=== PATIENT | male | born 1960 | race Caucasian/White ===

== ENCOUNTER → 2020-01-29 | Outpatient (CLI) | payer BC ==
[2020-01-29 11:20] LABS: HCT 44.2 % (39.0-53.0); MCV 91.2 fL (80.0-100.0); Mean Platelet Volume 7.9; Platelet Count 241 k/uL (150-450); RBC 4.84 m/uL (4.30-5.90); RDW 12.6 % (11.5-15.5); WBC 5.3 k/uL (3.8-10.6)
[2020-01-29 18:03] LABS: African American GFR (CKD) 94.4 (60.0-200.0); Albumin 4.2 g/dL (3.80-4.90); Albumin/Globulin Ratio 1.83 (1.60-3.17); Anion Gap 7.8 mmol/L (4.00-12.00); Calcium 9.2 mg/dL (8.7-10.3); Carbon Dioxide 26.2 mmol/L (21.6-31.8); Chol/HDL Ratio 5.09; Globulin 2.3 g/dL (1.6-3.3); LDL Cholesterol,Calculated 148.6 mg/dL (0.0-131.0); Non-African American GFR(CKD) 81.4 (60.0-200.0); Potassium 4.4 mmol/L (3.5-5.5); Total Bilirubin 0.8 mg/dL (0.3-1.2); Total Protein 6.5 g/dL (6.2-8.2); VLDL Calculation 27.4 mg/dL (5.00-40.00)
== END | disposition home or self-care (01) ==
LOC: LABWHC1 10:01
PROVIDERS: ATTEND Nurse Practitioner Family
DX: Z13.220 Encounter for screening for lipoid disorders (principal); Z12.11 Encounter for screening for malignant neoplasm of colon; Z12.5 Encounter for screening for malignant neoplasm of prostate; Z11.59 Encounter for screening for other viral diseases
CPT/HCPCS: 86803; 80061; 80053; 85027; 36415; G0103

== ENCOUNTER 2024-11-25 06:31 | Emergency (ER) | payer BC ==
[2024-11-25 06:36] VITALS: RESP 18
[2024-11-25 07:30] LABS: Basophils # (A) 0.06 10*3/uL (0.00-0.10); Basophils % (A) 0.8 %; Eosinophils # (A) 0.21 10*3/uL (0.04-0.35); Eosinophils % (A) 2.9 %; HCT 41.6 % (39.6-50.0); HGB 14.5 g/dL (13.0-17.0); Lymphocytes # (A) 1.22 10*3/uL (0.90-5.00); Lymphocytes % (A) 16.7 %; MCH 30.5 pg (27.0-32.0); MCHC 34.9 g/dL (32.0-37.0); MCV 87.4 fL (80.0-97.0); Mean Platelet Volume 10.7 fL (9.5-12.2); Neutrophils % (A) 68.5 %; Platelet Count 242 10*3/uL (140-440); RBC 4.76 10*6/uL (4.40-5.60); RDW 12.9 % (11.5-14.5)
--- NOTE | 2024-11-25 07:31 | ED ---
General Adult HPI - General Chief complaint: Dental/Oral Stated complaint: L Side Face Swelling Time Seen by Provider: 11/25/24 06:39 Source: patient, RN notes reviewed Mode of arrival: ambulatory Limitations: no limitations - History of Present Illness Initial comments: 64 year old male that presents to the ED with swelling and pain in the L cheek for the past 2 days. He reports that he has had no trauma or recent dental procedures on that side. He has tried taking Ibuprofen with no relief. Pain is getting worse to the point that now he has pain with swallowing and chewing.The pain is so severe that his teeth hurt on the left side too. He denies any nausea, vomiting, chest pain, and fevers. - Related Data Previous Rx's Medication Instructions Recorded Amoxic-Pot Clav 875-125Mg 1 tab PO Q12HR #20 tab 11/25/24 [Augmentin 875-125] Allergies Allergy/AdvReac Type Severity Reaction Status Date / Time No Known Allergies Allergy Verified 11/25/24 06:36 Review of Systems ROS Statement: Those systems with pertinent positive or pertinent negative responses have been documented in the HPI. ROS Other: All systems not noted in ROS Statement are negative. Past Medical History Past Medical History: No Reported History History of Any Multi-Drug Resistant Organisms: None Reported Past Surgical History: No Surgical Hx Reported Past Psychological History: No Psychological Hx Reported Smoking Status: Never smoker Past Alcohol Use History: Rare Past Drug Use History: None Reported General Exam Limitations: no limitations General appearance: alert, in no apparent distress Head exam: Present: atraumatic, normocephalic, normal inspection Eye exam: Present: normal appearance, PERRL, EOMI. Absent: scleral icterus, conjunctival injection, periorbital swelling ENT exam: Present: normal exam, mucous membranes dry, mucous membranes moist. Absent: normal oropharynx (tenderness on left side ), TM's normal bilaterally Neck exam: Present: normal inspection, full ROM. Absent: tenderness, lymphadenopathy Respiratory exam: Present: normal lung sounds bilaterally. Absent: respiratory distress, wheezes, rales, rhonchi, stridor Cardiovascular Exam: Present: regular rate, normal rhythm, normal heart sounds. Absent: systolic murmur, diastolic murmur, rubs, gallop, clicks Course Vital Signs 11/25/24 06:33 Temperature 98.1 F Pulse Rate 58 L Respiratory 18 Rate Blood Pressure 159/87 O2 Sat by Pulse 98 Oximetry Medical Decision Making - Medical Decision Making Was pt. sent in by a medical professional or institution ([facility] Nagy, [facility], urgent care, hospital, or alf...) When possible be specific @ -No Did you speak to anyone other than the patient for history (EMS, parent, family, police, friend...)? What history was obtained from this source @ -No Did you review nursing and triage notes (agree or disagree)? Why? @ -I reviewed and agree with nursing and triage notes Were old charts reviewed (outside hosp., previous admission, EMS record, old EKG, old radiological studies, urgent care reports/EKG's, alf records)? Report findings @ -No old charts were reviewed Differential Diagnosis (chest pain, altered mental status, abdominal pain women, abdominal pain men, vaginal bleeding, weakness, fever, dyspnea, syncope, headache, dizziness, GI bleed, back pain, seizure, CVA, palpatations, mental health, musculoskeletal)? @ -sailadentitis, parotitis, peritonsillar abscess, strep pharyngitis, dental infection, this is not all inclusive. EKG interpreted by me (3pts min.). @ -[None X-rays interpreted by me (1pt min.). @ -None done CT interpreted by me (1pt min.). @ -None done U/S interpreted by me (1pt. min.). @ -None done What testing was considered but not performed or refused? (CT, X-rays, U/S, labs)? Why? @ -None What meds were considered but not given or refused? Why? @ -None Did you discuss the management of the patient with other professionals (professionals i.e. [facility] Nagy, [facility], lab, RT, psych nurse, rn social services, air intelligence officer, teacher, senior grants officer, leather case finisher)? Give summary @ -No Was smoking cessation discussed for >3mins.? @ -No Was critical care preformed (if so, how long)? @ -No Were there social determinants of health that impacted care today? How? (Homelessness, low income, unemployed, alcoholism, drug addiction, transportati on, low edu. Level, literacy, decrease access to med. care, custodial, rehab)? @ -No Was there de-escalation of care discussed even if they declined (Discuss DNR or withdrawal of care, Hospice)? DNR status @ -No What co-morbidities impacted this encounter? (DM, HTN, Smoking, COPD, CAD, Cancer, CVA, ARF, Chemo, Hep., AIDS, mental health diagnosis, sleep apnea, morbid obesity)? @ -None Was patient admitted / discharged? Hospital course, mention meds given and route, prescriptions, significant lab abnormalities, going to OR and other pertinent info. @ -Discharge patient presented for left-sided facial swelling. Patient does have swelling over the parotid gland region amylase is elevated consistent with parotitis. Patient was started on Augmentin and advised to use sour candies. Patient will follow-up with PCP and return for any worsening change in symptoms. Undiagnosed new problem with uncertain prognosis? @ -No Drug Therapy requiring intensive monitoring for toxicity (Heparin, Nitro, Insul in, Cardizem)? @ -No Were any procedures done? @ -No Diagnosis/symptom? @ -Parotitis Acute, or Chronic, or Acute on Chronic? @Acute Uncomplicated (without systemic symptoms) or Complicated (systemic symptoms)? @ -Uncomplicated Side effects of treatment? @ -No Exacerbation, Progression, or Severe Exacerbation? @ -No Poses a threat to life or bodily function? How? (Chest pain, [place], [place], pneumonia, PE, COPD, DKA, ARF, appy, cholecystitis, CVA, Diverticulitis, Homicidal, Suicidal, threat to staff... and all critical care pts) @ -No - Lab Data Result diagrams: 11/25/24 07:16 11/25/24 07:16 Lab Results 11/25/24 11/25/24 Range/Units 07:16 07:16 WBC 7.30 (4.50-10.00) 10*3/uL RBC 4.76 (4.40-5.60) 10*6/uL Hgb 14.5 (13.0-17.0) g/dL Hct 41.6 (39.6-50.0) % MCV 87.4 (80.0-97.0) fL MCH 30.5 (27.0-32.0) pg MCHC 34.9 (32.0-37.0) g/dL Plt Count 242 (140-440) 10*3/uL MPV 10.7 (9.5-12.2) fL Immature Gran % (Auto) 0.1 % Neutrophils % 68.5 % Lymphocytes % 16.7 % Monocytes % 11.0 % Eosinophils % 2.9 % Basophils % 0.8 % Immature Gran # 0.01 (0.00-0.04) 10*3/uL Neutrophils # 5.00 (1.80-7.70) 10*3/uL Lymphocytes # 1.22 (0.90-5.00) 10*3/uL Monocytes # 0.80 (0.20-1.00) 10*3/uL Eosinophils # 0.21 (0.04-0.35) 10*3/uL Basophils # 0.06 (0.00-0.10) 10*3/uL Sodium 139 (137-145) mmol/L Potassium 3.9 (3.5-5.1) mmol/L Chloride 108 H (98-107) mmol/L Carbon Dioxide 25 (22-30) mmol/L Anion Gap 6 mmol/L BUN 15 (9-20) mg/dL Creatinine 0.87 (0.66-1.25) mg/dL Est GFR (CKD-EPI)AfAm >90 (>60 ml/min/1.73 sqM) Est GFR (CKD-EPI)NonAf >90 (>60 ml/min/1.73 sqM) Glucose 104 H (74-99) mg/dL Calcium 8.9 (8.4-10.2) mg/dL Total Bilirubin 1.1 (0.2-1.3) mg/dL AST 62 H (17-59) U/L ALT 122 H (4-49) U/L Alkaline Phosphatase 131 H (38-126) U/L Total Protein 6.5 (6.3-8.2) g/dL Albumin 3.6 (3.5-5.0) g/dL Amylase 554 H* (30-110) U/L Disposition Clinical Impression: Parotitis, acute Disposition: HOME SELF-CARE Condition: Stable Instructions (If sedation given, give patient instructions): Parotid Duct O bstruction (ED), Sialoadenitis (ED) Additional Instructions: Please return to the Emergency Department if symptoms worsen or any other concerns. Prescriptions: Amoxic-Pot Clav 875-125Mg [Augmentin 875-125] 1 tab PO Q12HR #20 tab Is patient prescribed a controlled substance at d/c from ED?: No Referrals: Holden Gonzalez MD [Primary Care Provider] - 1-2 days Time of Disposition: 08:01
[2024-11-25 07:38] LABS: ALT 122 U/L (4-49); AST 62 U/L (17-59); African American GFR (CKD) >90 (>60 ml/min/1.73 sqM); Albumin 3.6 g/dL (3.5-5.0); Alkaline Phosphatase 131 U/L (38-126); Anion Gap 6 mmol/L; Blood Urea Nitrogen 15 mg/dL (9-20); Calcium 8.9 mg/dL (8.4-10.2); Carbon Dioxide 25 mmol/L (22-30); Chloride 108 mmol/L (98-107); Glucose 104 mg/dL (74-99); Non-African American GFR(CKD) >90 (>60 ml/min/1.73 sqM); Potassium 3.9 mmol/L (3.5-5.1); Sodium 139 mmol/L (137-145); Total Bilirubin 1.1 mg/dL (0.2-1.3); Total Protein 6.5 g/dL (6.3-8.2)
[2024-11-25] MEDS: KETOROLAC 15 MG/ML 1 ML VIAL IVP STA (07:42)
[2024-11-25 07:51] LABS: Amylase 554 U/L (30-110)
[2024-11-25] MEDS: HYDROcodone/APAP 5-325MG 1 EACH TAB PO STA (08:14)
[2024-11-25] MEDS: ACET/COD 300 MG/30 MG STARTER PACK 6 TAB BTL PO STA (08:15)
[2024-11-25 08:31] VITALS: BP 148/76; PULSE 61; TEMP 98.2
== END 2024-11-25 10:24 | disposition home or self-care (01) ==
LOC: EC 06:31
DX: K11.21 Acute sialoadenitis (principal)
CPT/HCPCS: 36415; 80053; 82150; 85025; 99283; 96374; J1885

== ENCOUNTER → 2024-12-26 | Outpatient (CLI) | payer MEDICARE ==
--- NOTE | 2024-12-26 10:25 | US ---
EXAMINATION TYPE: US abdomen complete DATE OF EXAM: 12/26/2024 COMPARISON: NONE CLINICAL INDICATION: Male, 64 years old with history of R74.8 ABNORMAL LFTS; Abnormal labs TECHNIQUE: Grayscale and color Doppler imaging of the abdomen was performed. FINDINGS: EXAM MEASUREMENTS: Liver Length: 14.3 cm Gallbladder Wall: 0.1 cm Spleen: 11.0 cm Right Kidney: 11.2 x 5.5 cm Left Kidney: 11.1 x 5.2 x 5.8 cm ELECTRIC METER INSPECTOR NOTES: limited exam due to bowel gas Pancreas: Obscured by bowel gas Liver: Limited visualization. Scanned through ribs. No prominent masses or lesions seen at time of scan. Gallbladder: Limited visualization. Neck not seen due to bowel gas. Evidence for sonographic Squires's sign: neg CBD: Obscured by overlying bowel gas Spleen: wnl Right Kidney: wnl, No hydronephrosis, calculi or masses seen Left Kidney: wnl, No hydronephrosis, calculi or masses seen Upper IVC: wnl Abd Aorta: Proximal or mid portion obscured by overlying bowel gas Suboptimal study. The visualized liver is heterogeneous. Evaluation for focal masses is limited. The intrahepatic portion of the IVC and proximal abdominal aorta are within normal limits. There is no evidence of cholelithiasis. Common bile duct is unremarkable. The visualized portions of the pancre as are homogenous. The spleen is unremarkable. Kidneys are symmetric and free of hydronephrosis. N o renal lesions are seen. IMPRESSION: Suboptimal study. Heterogeneous normal sized liver. No ascites or biliary dilatation noted. [facility], , 12/26/2024 10:22 AM
== END | disposition home or self-care (01) ==
LOC: RADUSWWP 09:00
PROVIDERS: ATTEND Family Medicine
DX: R74.8 Abnormal levels of other serum enzymes (principal); R93.2 Abnormal findings on diagnostic imaging of liver and biliary tract
CPT/HCPCS: 76700

== ENCOUNTER → 2025-01-15 | Outpatient (CLI) | payer MEDICARE ==
[2025-01-15 15:23] LABS: ALT 97 U/L (10-49); AST 53 U/L (14-35); Albumin 4.1 g/dL (3.8-4.9); Albumin/Globulin Ratio 1.41 Ratio (1.60-3.17); Alkaline Phosphatase 138 U/L (41-126); Amylase 82 U/L (23-121); Blood Urea Nitrogen 14.1 mg/dL (9.0-27.0); Calcium 9.1 mg/dL (8.7-10.3); Carbon Dioxide 25.4 mmol/L (21.6-31.8); Chloride 106 mmol/L (96-109); Globulin 2.9 g/dL (1.6-3.3); Glucose 97 mg/dL (70-110); Lipase 46 U/L (14-60); Potassium 4.4 mmol/L (3.5-5.5); Sodium 142 mmol/L (135-145); Total Bilirubin 0.7 mg/dL (0.3-1.2)
== END | disposition home or self-care (01) ==
LOC: LABWHC1 08:59
PROVIDERS: ATTEND Family Medicine
DX: R74.8 Abnormal levels of other serum enzymes (principal)
CPT/HCPCS: 36415; 80053; 82150; 83690